=== PATIENT | male | born 1960 | race Two or more races ===

== ENCOUNTER 2022-08-27 08:24 | Outpatient (CLI) | payer OTHER | END 2022-08-27 08:27 | disposition home or self-care (01) | LOC: SONOGRAMA 08:24 | PROVIDERS: ATTEND Pathology Anatomic Pathology | DX: D44.0 Neoplasm of uncertain behavior of thyroid gland (principal); E07.9 Disorder of thyroid, unspecified ==

== ENCOUNTER 2022-10-22 08:50 | Outpatient (CLI) | payer OTHER | END 2022-10-22 09:05 | disposition home or self-care (01) | LOC: RX STUDY 08:50 | PROVIDERS: ATTEND Surgery | DX: Z01.818 Encounter for other preprocedural examination (principal); R13.10 Dysphagia, unspecified; R49.8 Other voice and resonance disorders; E02 Subclinical iodine-deficiency hypothyroidism ==

== ENCOUNTER 2023-04-01 07:27 | Outpatient (CLI) | payer OTHER | END 2023-04-01 07:40 | disposition home or self-care (01) | LOC: RAD 07:27 | PROVIDERS: ATTEND Surgery | DX: R49.0 Dysphonia (principal); R49.8 Other voice and resonance disorders; E03.9 Hypothyroidism, unspecified; E04.2 Nontoxic multinodular goiter; R13.13 Dysphagia, pharyngeal phase ==